=== PATIENT | female | born 1960 ===

== ENCOUNTER 2022-08-26 17:24 | Outpatient (REF) | payer OTHER, SELFPAY ==
[2022-08-27 00:28] LABS: Anion Gap 4.1 mmol/L (3-11); BUN 18 mg/dL (7-18); CO2 30.9 mmol/L (21.0-32.0); CREATININE 0.9 mg/dL (0.55-1.02); Calcium 9.4 mg/dL (8.5-10.1); Calculated LDL 114 mg/dL (<100); Chloride 106 mmol/L (98-107); Cholesterol 192 mg/dL (<200); Estimated GFR 71.39 (mL/min/1.73m2); Glucose 101 mg/dL (74-106); HDL Cholesterol 63 mg/dL (40-60); Potassium 4.1 mmol/L (3.5-5.1); Sodium 141 mmol/L (136-145); Triglyceride 78 mg/dL (<150)
== END 2022-08-26 17:25 | disposition home or self-care (01) ==
LOC: NCHCN 17:24
PROVIDERS: Visit Provider Nurse Practitioner Family
DX: Z00.00 Encounter for general adult medical examination without abnormal findings (principal); Z13.220 Encounter for screening for lipoid disorders
CPT/HCPCS: 80048; 80061

== ENCOUNTER 2025-02-14 15:58 | Outpatient (REF) | payer MEDICARE, OTHER, SELFPAY ==
[2025-02-14 21:13] LABS: HCT 41.4 % (36.0-46.0); HGB 13.5 g/dL (11.2-15.7); MCH 30.7 pg (27.0-33.0); MCHC 32.6 % (32.0-36.0); MCV 94 fL (80-95); MPV 10.3 fL (8.0-11.0); Platelet Count 262 10^3/uL (130-400); RBC 4.40 10^6/uL (3.93-5.22); RDW 12.2 % (11.7-14.6); RDW-SD 42.6 fL; WBC 5.95 10^3/uL (4.4-10.8)
[2025-02-14 21:56] LABS: ALT 35 U/L (14-59); AST 28 U/L (15-37); Albumin 3.9 g/dL (3.4-5.0); Alkaline Phosphatase 64 U/L (46-116); Anion Gap 4.1 mmol/L (3-11); BUN 20 mg/dL (7-18); Bilirubin, Total 0.6 mg/dL (0.2-1.0); CO2 30.9 mmol/L (21.0-32.0); Calcium 9.4 mg/dL (8.5-10.1); Calculated LDL 118 mg/dL (<100); Chloride 104 mmol/L (98-107); Cholesterol 193 mg/dL (<200); Estimated GFR 95.32 (mL/min/1.73m2); Glucose 94 mg/dL (74-106); HDL Cholesterol 57 mg/dL (>or=50); Potassium 3.8 mmol/L (3.5-5.1); Sodium 139 mmol/L (136-145); Total Protein 7.1 g/dL (6.4-8.2); Triglyceride 91 mg/dL (<150)
[2025-02-16 10:19] LABS: Hepatitis C Ab w Rflx HCV PCR Negative (Negative)
[2025-02-16 10:42] LABS: HIV-1/2 Ag & Ab Screen Negative (Negative)
== END 2025-02-14 15:59 | disposition home or self-care (01) ==
LOC: NCHCN 15:58
PROVIDERS: Visit Provider Nurse Practitioner Family
DX: Z00.00 Encounter for general adult medical examination without abnormal findings (principal)
CPT/HCPCS: 80053; 80061; 85027; 86803; 87389